=== PATIENT | male | born 1950 | race Caucasian/White ===

== ENCOUNTER 2017-10-05 10:36 | Emergency (ER) | payer OTHER, BC ==
[~2017-10-05] VITALS: Ht 180.3 cm; Wt 125.4 kg
[2017-10-05 11:25] LABS: HEMATOCRIT 37.9 % (38.0-50.0); HEMOGLOBIN 12.8 G/DL (12.5-16.6); MCH 32.2 PG (29.0-34.0); MCHC 33.8 G/DL (30.0-36.0); MCV 95.2 FL (86-99); PLATELET COUNT 226 K/uL (156-360); RBC DIS.WIDTH-CV 12.5 % (11.8-14.6); RBC DIS.WIDTH-SD 43.4 % (39-53); RED BLOOD COUNT 3.98 M/uL (4.00-5.50); WHITE BLOOD COUNT 5.4 K/uL (4.1-10.2)
[2017-10-05 11:44] LABS: CHLORIDE 106 mEq/L (99-109); POTASSIUM 3.8 mEq/L (3.7-5.4); SODIUM 138 mEq/L (136-147)
[2017-10-05 11:46] LABS: GLUCOSE 174 mg/dL (70-99)
[2017-10-05 11:49] LABS: CREATININE 1.1 mg/dL (0.6-1.3); GFR ESTIMATE (CALCULATED) > 59 mL/min/ (58.99-99999)
[2017-10-05 11:50] LABS: UREA NITROGEN (BUN) 13 mg/dL (9-23)
[2017-10-05 13:20] LABS: TROP-I INTERPRETATION NEGATIVE; TROPONIN-I < 0.01 ng/mL (0.0-0.30)
[2017-10-05 13:45] LABS: TROP-I INTERPRETATION NEGATIVE; TROPONIN-I < 0.01 ng/mL (0.0-0.30)
[2017-10-05] MEDS ORDERED: PREDNISONE20 MG PO (13:55)
[2017-10-05 14:42] VITALS: BP 131/76
== END 2017-10-05 14:42 | disposition home or self-care (01) ==
LOC: EME 10:36
PROVIDERS: Nurse Practitioner Family
DX: J44.1 Chronic obstructive pulmonary disease with (acute) exacerbation (principal); I45.10 Unspecified right bundle-branch block; F20.9 Schizophrenia, unspecified; R73.9 Hyperglycemia, unspecified; Z87.891 Personal history of nicotine dependence; Z79.82 Long term (current) use of aspirin
CPT/HCPCS: 71046; 80048; 83880; 84484; 85027; 85379; 93005; 94640; 99281; 99284